=== PATIENT | female | born 1995 | race Asian ===

== ENCOUNTER 2017-05-17 10:52 | Emergency (ER) | payer BC ==
[~2017-05-17] VITALS: Ht 154.9 cm; Wt 49.3 kg
[2017-05-17 10:57] VITALS: TEMP 37.2; Ht 154.9 cm; Wt 49.3 kg
[2017-05-17] MEDS ORDERED: DEXTTAB PO (11:19)
[2017-05-17] MEDS ORDERED: BCPILLS PO (11:19)
[2017-05-17] MEDS ORDERED: ACET-1256 PO (11:19)
[2017-05-17] MEDS ORDERED: ONDA4TAB10 SL (11:40)
[2017-05-17] MEDS ORDERED: ONDANSETRON 4MG OD TAB PO ONE (11:45)
[2017-05-17 11:49] VITALS: BP 107/64; PULSE 79; O2SAT 99
--- NOTE | 2017-05-17 12:17 | EMERGENCY ROOM VISIT NOTE ---
History First contact with patient: 11:07 Chief Complaint: FEVER Stated Complaint: HIGH FEVER, BODY ACHES/CHILLS History of Present Illness The patient is a 21 year old female who presents to the Emergency Room with complaints of persistent body aches, chills, fever and weakness. The patient reports that her symptoms started Tuesday evening with chills. They were not no shaking. The patient also reports that she had watery diarrhea as well. On Tuesday morning, her oral temperature was 104.3F. She was seen at the [facility] [place] where a influenza and mono test were both performed and were negative. The patient reports that her roommate developed symptoms approximately 24 hours after she did. The patient otherwise denies any runny nose, sinus congestion, headache, sore throat or cough. She also denies any abdominal pain or urinary symptoms. The patient did take Tylenol 1 hour prior to arrival, and reports that she did get sweaty on the way here. The patient denies any history of immunocompromise. Review of Systems 10 system review was performed and was negative except for pertinent positives and negatives as indicated in history of present illness Past Medical/Surgical History Medical Problems: (1) No significant past medical history Surgical Problems: (1) History of wisdom tooth extraction Family History FH: diabetes mellitus Social History Smoking Status: Never Smoker Alcohol Use: occasionally Marital Status: single Housing Status: lives with roommate Occupation Status: [employer] student Current/Historical Medications Scheduled Acetaminophen (Tylenol), 500 MG PO BID Control Pills ( Control Pills), 1 TAB PO DAILY Dextromethorphan-Phenylephrine (Theraflu Severe Cold Dayt), 1 TAB PO BID Ondasetron Odt (Zofran Odt), 4 MG SL Q6H Physical Exam Vital Signs Date Time Temp Pulse Resp B/P (MAP) Pulse Ox O2 Delivery O2 Flow Rate FiO2 05/17/17 11:49 79 18 107/64 99 05/17/17 10:57 37.2 97 18 110/81 98 Room Air Physical Exam CONSTITUTIONAL: Healthy and well nourished. Alert and oriented X 3 with positive affect. Patient does not appear in any acute distress, nor does she appear acutely ill or toxic. HEENT: Normocephalic, atraumatic. Pupils equal, round and reactive. Ears and nares are clear. No tenderness to palpation or percussion of the frontal or maxillary sinuses. OROPHARYNX: Minimal posterior pharyngeal erythema without tonsillar hypertrophy or exudates. LYMPHATICS: No cervical chain adenopathy noted. NECK: Full active range of motion without discomfort. No nuchal rigidity. RESPIRATORY: Clear to auscultation bilaterally with no wheezing, crackles, rhonchi or stridor. CARDIOVASCULAR: Regular rate and rhythm with no murmurs, rubs or gallops. GASTROINTESTINAL: Bowel sounds present in all quadrants. Abdomen is soft and nontender to palpation. Negative CVA tenderness. MUSCULOSKELETAL: Full range of motion of all joints without discomfort. INTEGUMENTARY: No rash or other significant dermatologic conditions noted. NEUROLOGIC: No focal neurologic deficits noted. Medical Decision & Procedures Medications Administered Medications (Trade) Dose Ordered Sig/Christina Route Start Time Stop Time Status Last Admin Dose Admin Ondansetron HCl (Zofran Odt) 4 mg ONE ONCE PO 05/17/17 11:45 05/17/17 11:46 DC 05/17/17 11:39 4 MG ED Course Patient history and physical exam were performed. Nurse's notes were reviewed. Vital signs were reviewed and are currently stable. The patient is afebrile, normotensive and not tachycardic. O2 saturation is 98% on room air. Then mild posterior pharyngeal erythema, the patient does not have any other significant clinical findings. He denies any urinary symptoms. She did have diarrhea initially with infection onset, therefore I suspect that this is a GI viral illness. The patient was administered Zofran ODT in the emergency department for nausea. She was also provided a prescription for the same. She was instructed to rest and remain well-hydrated. The patient was encouraged to return to [facility] as needed for further management. The patient refused to do so, and was therefore provided contact information for the [facility] walk-in clinic (Dr. Davis) as needed for further management. The patient was happy with plan of care, and voiced understanding of all discharge instructions. Medical Decision See previous section. I do not suspect an upper respiratory infection or UTI or the patient did have a negative rapid flu test. Her mono screen was certainly done way too early, however given the patient's current symptoms, I feel that mononucleosis risk is relatively low. Medication Reconcilliation Current Medication List: was personally reviewed by me Blood Pressure Screening Patient's blood pressure: Normal blood pressure Impression Primary Impression: Febrile illness, acute Departure Information Dispostion Home / Self-Care Condition GOOD Prescriptions Ondasetron Odt (ZOFRAN ODT) 4 Mg Tab 4 MG SL Q6H for Nausea, #15 TAB Prov: Odilon Hernandez PA 05/17/17 Referrals Roby Davis D.O. Forms HOME CARE DOCUMENTATION FORM, IMPORTANT VISIT INFORMATION Patient Instructions [facility] [place] [facility] Additional Instructions Rest and remain well-hydrated. Take Zofran ODT as needed to prevent nausea. Ibuprofen 600 mg and/or Tylenol 1000 mg every 8 hours for pain/fever. You may also alternate these medications for more effective control: Ibuprofen --4 HRS--> Tylenol --4 HRS--> ibuprofen --4 HRS--> Tylenol .... Follow-up with the [facility] (Dr. Davis) as needed for further management. FOR CLASSES: Sarah was in the emergency department today, 05/17/17 from 11am-12 pm.
== END 2017-05-17 11:50 | disposition home or self-care (01) ==
LOC: C.EDB 10:54 → C.EDC 11:50
DX: R50.9 Fever, unspecified (principal); M79.1 Myalgia